=== PATIENT | female | born 2000 | race African-American/Black ===

== ENCOUNTER 2024-07-17 23:05 | Emergency (ER) | payer BC ==
[~2024-07-17] VITALS: Ht 172.7 cm; Wt 90.0 kg
[~2024-07-17 23:05] MED LIST: AMOXICILLIN 8751 TAB PO; CEPHALEXIN500 M1 PO; NO HOME MEDICATIONS
[2024-07-17 23:22] VITALS: TEMP 97.4
[2024-07-18 00:08] VITALS: BP 136/73; PULSE 66
== END 2024-07-18 00:06 | disposition home or self-care (01) ==
LOC: COL.ER 23:05
DX: S90.852A Superficial foreign body, left foot, initial encounter (principal); Z23 Encounter for immunization; W45.0XXA Nail entering through skin, initial encounter